=== PATIENT | female | born 1950 | race Caucasian/White ===

== ENCOUNTER → 2017-03-21 | Outpatient (REF) | payer MEDICARE | LOC: M SFHCCLAY 11:54 | PROVIDERS: ATTEND Family Medicine | DX: E78.2 Mixed hyperlipidemia (principal) | CPT/HCPCS: 80061; 84460; G0463 ==

== ENCOUNTER 2017-05-18 09:29 | Day surgery (SDC) | payer MEDICARE ==
[2017-05-18] MEDS: NS 1,000 ML IV (10:28)
[2017-05-18] MEDS ORDERED: PROPOFOL 200 MG/20 ML VIAL As Ordered (10:43)
== END 2017-05-18 11:50 | disposition home or self-care (01) ==
LOC: M OPP 09:29
DX: Z12.11 Encounter for screening for malignant neoplasm of colon (principal); K57.30 Diverticulosis of large intestine without perforation or abscess without bleeding; I10 Essential (primary) hypertension; E78.5 Hyperlipidemia, unspecified; E03.9 Hypothyroidism, unspecified; K21.9 Gastro-esophageal reflux disease without esophagitis; M19.90 Unspecified osteoarthritis, unspecified site; R00.8 Other abnormalities of heart beat; M62.831 Muscle spasm of calf; J01.90 Acute sinusitis, unspecified; N13.70 Vesicoureteral-reflux, unspecified; Z79.2 Long term (current) use of antibiotics; Z79.899 Other long term (current) drug therapy; Z78.0 Asymptomatic menopausal state; Z88.0 Allergy status to penicillin; Z88.2 Allergy status to sulfonamides; Z88.1 Allergy status to other antibiotic agents; Z88.5 Allergy status to narcotic agent
CPT/HCPCS: G0121

== ENCOUNTER → 2017-10-06 | Outpatient (REF) | payer MEDICARE ==
[2017-10-06 12:14] LABS: ALBUMIN 3.9 GM/DL (3.2-5.2); ALBUMIN/GLOBULIN RATIO 1.11 (1.00-1.93); ALKALINE PHOSPHATASE 80 U/L (45-117); ALT/SGPT 47 U/L (12-78); ANION GAP 8 MEQ/L (8-16); AST/SGOT 26 U/L (7-37); BILIRUBIN,TOTAL 0.5 MG/DL (0.2-1.0); BLOOD UREA NITROGEN 13 MG/DL (7-18); CARBON DIOXIDE LEVEL 28 MEQ/L (21-32); CHLORIDE LEVEL 104 MEQ/L (98-107); CHOLESTEROL LEVEL 175 MG/DL (<200); CHOLESTEROL RISK RATIO 3.125 (<5); CREATININE FOR GFR 0.82 MG/DL (0.55-1.30); FREE T4 1.05 NG/DL (0.76-1.46); GLOMERULAR FILTRATION RATE > 60.0 (>45); GLUCOSE, FASTING 123 MG/DL (70-100); HDL CHOLESTEROL 56 MG/DL (>40); LDL CHOLESTEROL 90.6 MG/DL (<100); NON-HDL-C 119 MG/DL; POTASSIUM SERUM 4.1 MEQ/L (3.5-5.1); SODIUM LEVEL 140 MEQ/L (136-145); TOTAL PROTEIN 7.4 GM/DL (6.4-8.2); TRIGLYCERIDES LEVEL 142 MG/DL (<150)
== END ==
LOC: M SFHCCLAY 09:35
DX: E03.9 Hypothyroidism, unspecified (principal); I10 Essential (primary) hypertension; E78.2 Mixed hyperlipidemia
CPT/HCPCS: 84443

== ENCOUNTER → 2018-12-12 | Outpatient (REF) | payer MEDICARE ==
[~2018-12-12] MED LIST: ATEN50TA2 PO; CRAN125T PO; ESTR25TA PO; FURO40TA2 PO; LEVO75TA4 PO; ROSU5TAB5 PO; VITA100067 PO
[2018-12-12 11:57] LABS: HEMATOCRIT 41.4 % (36.0-47.0); MEAN CORPUSCULAR HEMOGLOBIN 30.8 pg (27.0-33.0); MEAN CORPUSCULAR HGB CONC 33.8 g/dl (32.0-36.5); MEAN CORPUSCULAR VOLUME 91.2 fl (80.0-96.0); PLATELET COUNT, AUTOMATED 232 10^3/uL (150-450); RED BLOOD COUNT 4.54 10^6/uL (4.00-5.40)
[2018-12-12 12:20] LABS: HEMOGLOBIN A1c 6.9 %
[2018-12-12 12:27] LABS: ALT/SGPT 37 U/L (12-78); BILIRUBIN,TOTAL 0.4 MG/DL (0.2-1.0); BLOOD UREA NITROGEN 16 MG/DL (7-18); CALCIUM LEVEL 9.3 MG/DL (8.8-10.2); CARBON DIOXIDE LEVEL 27 MEQ/L (21-32); CHLORIDE LEVEL 107 MEQ/L (98-107); CHOLESTEROL LEVEL 169 MG/DL (<200); CHOLESTEROL RISK RATIO 2.864 (<5); CREATININE FOR GFR 0.95 MG/DL (0.55-1.30); FREE T4 1.21 NG/DL (0.76-1.46); GLOMERULAR FILTRATION RATE > 60.0 (>39); GLUCOSE, FASTING 128 MG/DL (70-100); HDL CHOLESTEROL 59 MG/DL (>40); LDL CHOLESTEROL 87 MG/DL (<100); NON-HDL-C 110 MG/DL; POTASSIUM SERUM 4.1 MEQ/L (3.5-5.1); SODIUM LEVEL 140 MEQ/L (136-145); TOTAL PROTEIN 7.3 GM/DL (6.4-8.2); TRIGLYCERIDES LEVEL 116 MG/DL (<150)
== END ==
LOC: M SFHCCLAY 09:02
PROVIDERS: ATTEND Family Medicine
DX: E03.9 Hypothyroidism, unspecified (principal); I10 Essential (primary) hypertension; E78.2 Mixed hyperlipidemia; R73.01 Impaired fasting glucose

== ENCOUNTER → 2019-02-01 | Outpatient (REF) | payer MEDICARE | LOC: M SFHCCLAY 12:23 | PROVIDERS: ATTEND Nurse Practitioner Family | DX: N39.0 Urinary tract infection, site not specified (principal) | CPT/HCPCS: 81002; 87088; 87186; G0463 ==

== ENCOUNTER → 2019-02-15 | Outpatient (REF) | payer MEDICARE | LOC: M SFHCCLAY 10:26 | PROVIDERS: ATTEND Nurse Practitioner Family | DX: N39.0 Urinary tract infection, site not specified (principal) ==

== ENCOUNTER → 2019-11-29 | Outpatient (REF) | payer MEDICARE ==
[2019-11-29 16:26] LABS: CHOLESTEROL LEVEL 202 MG/DL (<200); CHOLESTEROL RISK RATIO 3.607 (<5); HDL CHOLESTEROL 56 MG/DL (>40); LDL CHOLESTEROL 119 MG/DL (<100); NON-HDL-C 146 MG/DL; TOTAL PROTEIN 7.8 GM/DL (6.4-8.2); TRIGLYCERIDES LEVEL 135 MG/DL (<150)
[2019-12-02 12:53] LABS: ALBUMIN 4.77 GM/DL (3.29-5.55); ALBUMIN % 61.2 % (55.8-66.1); ALPHA-1-GLOBULIN % 3.8 % (2.9-4.9); ALPHA-2-GLOBULINS 0.88 GM/DL (0.42-0.99); ALPHA-2-GLOBULINS % 11.3 % (7.1-11.8); BETA-1-GLOBULINS 0.46 GM/DL (0.28-0.60); BETA-1-GLOBULINS % 5.9 % (4.7-7.2); BETA-2-GLOBULINS % 5.1 % (3.2-6.5); GAMMA GLOBULIN % 12.7 % (11.1-18.8); GAMMA GLOBULINS 0.99 GM/DL (0.65-1.58)
== END ==
LOC: M SFHCCLAY 12:44
PROVIDERS: ATTEND Family Medicine
DX: R25.2 Cramp and spasm (principal); E03.9 Hypothyroidism, unspecified; E78.2 Mixed hyperlipidemia; I10 Essential (primary) hypertension; R60.0 Localized edema

== ENCOUNTER → 2020-01-07 | Outpatient (REF) | payer MEDICARE | LOC: M LABDRAWC 13:00 | PROVIDERS: ATTEND Family Medicine | DX: N30.01 Acute cystitis with hematuria (principal) | CPT/HCPCS: 81002; 87088; 87186; G0463 ==

== ENCOUNTER → 2020-02-03 | Outpatient (REF) | payer MEDICARE ==
[2020-02-03 12:56] LABS: CALCIUM LEVEL 9.6 MG/DL (8.8-10.2); CREATININE FOR GFR 0.99 MG/DL (0.55-1.30); FREE T4 1.12 NG/DL (0.76-1.46); GLOMERULAR FILTRATION RATE 58.9 (>39); POTASSIUM SERUM 4.6 MEQ/L (3.5-5.1); THYROID STIMULATING HORMONE 1.6 uIU/ML (0.358-3.740)
== END ==
LOC: M SFHCCLAY 10:59
PROVIDERS: ATTEND Family Medicine
DX: E11.9 Type 2 diabetes mellitus without complications (principal); E03.4 Atrophy of thyroid (acquired)

== ENCOUNTER → 2020-02-06 | Outpatient (REF) | payer MEDICARE | LOC: M SFHCCLAY 11:29 | PROVIDERS: ATTEND Physician Assistant | DX: R30.0 Dysuria (principal); N39.0 Urinary tract infection, site not specified ==

== ENCOUNTER → 2020-09-07 | Outpatient (REF) | payer MEDICARE ==
[2020-09-07 12:38] LABS: CALCIUM LEVEL 9.9 MG/DL (8.8-10.2); CREATININE FOR GFR 1.05 MG/DL (0.55-1.30); GLOMERULAR FILTRATION RATE 54.8 (>39); MAGNESIUM LEVEL 2.2 MG/DL (1.8-2.4); POTASSIUM SERUM 4.2 MEQ/L (3.5-5.1); THYROID STIMULATING HORMONE 0.236 uIU/ML (0.358-3.740)
[2020-09-07 13:12] LABS: HEMOGLOBIN A1c 6.4 %
== END ==
LOC: M SFHCCLAY 08:52
PROVIDERS: ATTEND Family Medicine
DX: R25.2 Cramp and spasm (principal); I10 Essential (primary) hypertension; E11.9 Type 2 diabetes mellitus without complications; E03.9 Hypothyroidism, unspecified; E78.2 Mixed hyperlipidemia

== ENCOUNTER → 2021-02-04 | Outpatient (REF) | payer MEDICARE | LOC: M SFHCCLAY 12:40 | PROVIDERS: ATTEND Family Medicine | DX: N12 Tubulo-interstitial nephritis, not specified as acute or chronic (principal) | CPT/HCPCS: 81002; 87088; 87186; G0463 ==

== ENCOUNTER → 2021-07-15 | Outpatient (REF) | payer MEDICARE | LOC: M SFHCCLAY 10:28 | PROVIDERS: ATTEND Family Medicine | DX: N30.01 Acute cystitis with hematuria (principal) ==

== ENCOUNTER → 2021-08-30 | Outpatient (REF) | payer MEDICARE ==
[2021-08-30 16:22] LABS: BASO % 0.5 % (0.0-1.0); EOS # 0.2 10^3/uL (0.0-0.5); HEMATOCRIT 39.6 % (36.0-47.0); HEMOGLOBIN 13.6 g/dl (12.0-15.5); LYMPH # 2.6 10^3/uL (1.5-5.0); LYMPH % 31.3 % (24.0-44.0); MEAN CORPUSCULAR HEMOGLOBIN 30.5 pg (27.0-33.0); MEAN CORPUSCULAR HGB CONC 34.3 g/dl (32.0-36.5); MEAN CORPUSCULAR VOLUME 88.8 fl (80.0-96.0); MONO # 0.6 10^3/uL (0.0-0.8); MONO % 7.6 % (2.0-8.0); NEUTROPHILS # 4.8 10^3/uL (1.5-8.5); NEUTROPHILS % 57.8 % (36.0-66.0); PLATELET COUNT, AUTOMATED 267 10^3/uL (150-450); RED BLOOD COUNT 4.46 10^6/uL (4.00-5.40); WHITE BLOOD COUNT 8.4 10^3/uL (4.0-10.0)
[2021-08-30 16:23] LABS: AMORPHOUS SEDIMENT SMALL (NEGATIVE); APPEARANCE, URINE HAZY (CLEAR); BACTERIA, URINE AUTO 1+ (NEGATIVE); BILIRUBIN, URINE AUTO NEGATIVE (NEGATIVE); BLOOD, URINE BLOOD NEGATIVE (NEGATIVE); COLOR, URINE YELLOW (YELLOW); GLUCOSE, URINE (UA) AUTO NEGATIVE (NEGATIVE); KETONE, URINE AUTO NEGATIVE (NEGATIVE); LEUKOCYTE ESTERASE, URINE AUTO NEGATIVE (NEGATIVE); NITRITE, URINE AUTO NEGATIVE (NEGATIVE); PROTEIN, URINE AUTO NEGATIVE (NEGATIVE); RBC, URINE AUTO 1 /HPF (0-3); SPECIFIC GRAVITY URINE AUTO 1.013 (1.002-1.035); SQUAMOUS EPITHELIAL CELL UR AU 12 /HPF (0-6); UROBILINOGEN, URINE AUTO 0.2 mg/dL (0.0-2.0); WBC, URINE AUTO 2 /HPF (0-3)
[2021-08-30 16:57] LABS: BILIRUBIN,TOTAL 0.5 MG/DL (0.2-1.0); CALCIUM LEVEL 9.7 MG/DL (8.8-10.2); CHOLESTEROL RISK RATIO 2.693 (<5); CREATININE FOR GFR 1.01 MG/DL (0.55-1.30); FREE T4 1.2 NG/DL (0.76-1.46); GLOMERULAR FILTRATION RATE 57.2 (>39); THYROID STIMULATING HORMONE 1.25 uIU/ML (0.358-3.740); TOTAL PROTEIN 7.4 GM/DL (6.4-8.2); URIC ACID 5.5 MG/DL (2.6-6.0)
[2021-08-30 17:01] LABS: HEMOGLOBIN A1c 7.1 %
[2021-08-30 17:14] LABS: ERYTHROCYTE SEDIMENTATION RATE 22 mm/hr (0-30)
[2021-09-01 23:08] LABS: ANA (HEP2) Negative (.); CYCLIC CITRULLINATED PEPTIDE 22 units (0-19)
== END ==
LOC: M SFHCCLAY 09:46
PROVIDERS: ATTEND Family Medicine
DX: Z00.00 Encounter for general adult medical examination without abnormal findings (principal); E03.9 Hypothyroidism, unspecified; E78.2 Mixed hyperlipidemia; I10 Essential (primary) hypertension; E11.9 Type 2 diabetes mellitus without complications; K21.9 Gastro-esophageal reflux disease without esophagitis; M79.10 Myalgia, unspecified site

== ENCOUNTER → 2022-02-10 | Outpatient (REF) | payer MEDICARE ==
[2022-02-10 19:15] LABS: HEMOGLOBIN A1c 6.7 %
== END ==
LOC: M SFHCCLAY 11:36
PROVIDERS: ATTEND Family Medicine
DX: E11.9 Type 2 diabetes mellitus without complications (principal)

== ENCOUNTER → 2022-09-01 | Outpatient (CLI) | payer MEDICARE | LOC: M WHC 12:04 | PROVIDERS: ATTEND Family Medicine | DX: Z12.31 Encounter for screening mammogram for malignant neoplasm of breast (principal) ==

== ENCOUNTER → 2023-03-23 | Outpatient (CLI) | payer MEDICARE | LOC: M RAD 10:01 | PROVIDERS: ATTEND Family Medicine | DX: M54.2 Cervicalgia (principal); E03.9 Hypothyroidism, unspecified ==

== ENCOUNTER → 2023-09-01 | Outpatient (REF) | payer MEDICARE ==
[2023-09-01 19:02] LABS: HEMOGLOBIN A1c 7.8 % (4.0-6.0)
== END ==
LOC: M SFHCCLAY 11:34
PROVIDERS: ATTEND Physician Assistant
DX: E11.9 Type 2 diabetes mellitus without complications (principal)

== ENCOUNTER → 2023-12-04 | Outpatient (REF) | payer MEDICARE ==
[~2023-12-04] MED LIST changes: +ROSU5TAB40 PO; -ROSU5TAB5 PO
[2023-12-04 17:45] LABS: BILIRUBIN,TOTAL 0.5 MG/DL (0.3-1.2); CALCIUM LEVEL 9.4 MG/DL (8.3-10.6); CHOLESTEROL RISK RATIO 3.48 (<5); CREATININE FOR GFR 1.14 MG/DL (0.55-1.30); GLOMERULAR FILTRATION RATE 49.5 (>39); HDL CHOLESTEROL 54.3 MG/DL (>40); LDL CHOLESTEROL 91.7 MG/DL (<100); NON-HDL-C 134.7 MG/DL; POTASSIUM SERUM 3.9 MMOL/L (3.5-5.1); TOTAL PROTEIN 7.1 G/DL (5.7-8.2)
[2023-12-04 17:47] LABS: FREE T4 1.13 NG/DL (0.89-1.76); THYROID STIMULATING HORMONE 1.761 uIU/ML (0.55-4.78)
[2023-12-04 18:52] LABS: CREATININE, URINE 64.4 MG/DL; MALB URINE SIEMENS < 3.0 MG/L; MAU/CREAT RATIO 4.6 MCG/MG (0.0-30.0)
== END ==
LOC: M SFHCCLAY 09:36
PROVIDERS: ATTEND Physician Assistant
DX: E03.9 Hypothyroidism, unspecified (principal); E11.9 Type 2 diabetes mellitus without complications; E78.2 Mixed hyperlipidemia

== ENCOUNTER → 2024-02-22 | Outpatient (CLI) | payer MEDICARE | LOC: M RAD 10:09 | PROVIDERS: ATTEND Internal Medicine Nephrology | DX: N18.31 Chronic kidney disease, stage 3a (principal); N30.00 Acute cystitis without hematuria; I12.9 Hypertensive chronic kidney disease with stage 1 through stage 4 chronic kidney disease, or unspecified chronic kidney disease; N28.1 Cyst of kidney, acquired ==

== ENCOUNTER → 2024-03-04 | Outpatient (REF) | payer MEDICARE ==
[2024-03-04 17:36] LABS: HEMOGLOBIN A1c 7.4 % (4.0-6.0)
== END ==
LOC: M SFHCCLAY 09:58
PROVIDERS: ATTEND Physician Assistant
DX: E11.9 Type 2 diabetes mellitus without complications (principal)

== ENCOUNTER → 2024-03-13 | Outpatient (REF) | payer MEDICARE | LOC: M SFHCCLAY 11:36 | PROVIDERS: ATTEND Physician Assistant | DX: N30.01 Acute cystitis with hematuria (principal) ==

== ENCOUNTER → 2024-03-28 | Outpatient (REF) | payer MEDICARE ==
[~2024-03-28] MED LIST changes: -ROSU5TAB40 PO; +ROSU5TAB49 PO
[2024-03-28 17:35] LABS: APPEARANCE, URINE CLEAR (CLEAR); BACTERIA, URINE AUTO NEGATIVE (NEGATIVE); BILIRUBIN, URINE AUTO NEGATIVE (NEGATIVE); BLOOD, URINE BLOOD NEGATIVE (NEGATIVE); COLOR, URINE STRAW (YELLOW); GLUCOSE, URINE (UA) AUTO 3+ mg/dL (NEGATIVE); KETONE, URINE AUTO NEGATIVE (NEGATIVE); LEUKOCYTE ESTERASE, URINE AUTO NEGATIVE (NEGATIVE); NITRITE, URINE AUTO NEGATIVE (NEGATIVE); PROTEIN, URINE AUTO NEGATIVE (NEGATIVE); RBC, URINE AUTO 0 /HPF (0-3); SQUAMOUS EPITHELIAL CELL UR AU 1 /HPF (0-6); UROBILINOGEN, URINE AUTO 0.2 mg/dL (0.0-2.0); WBC, URINE AUTO 1 /HPF (0-3)
== END ==
LOC: M SFHCCLAY 10:02
PROVIDERS: ATTEND Physician Assistant
DX: N30.01 Acute cystitis with hematuria (principal)

== ENCOUNTER → 2024-04-04 | Outpatient (CLI) | payer MEDICARE | LOC: M RAD 14:08 | PROVIDERS: ATTEND Physician Assistant | DX: R59.9 Enlarged lymph nodes, unspecified (principal) ==

== ENCOUNTER → 2024-05-31 | Outpatient (REF) | payer MEDICARE ==
[2024-05-31 10:57] LABS: APPEARANCE, URINE TURBID (CLEAR); BACTERIA, URINE AUTO 3+ (NEGATIVE); BILIRUBIN, URINE AUTO NEGATIVE (NEGATIVE); BLOOD, URINE BLOOD 1+ (NEGATIVE); COLOR, URINE YELLOW (YELLOW); GLUCOSE, URINE (UA) AUTO 3+ mg/dL (NEGATIVE); KETONE, URINE AUTO NEGATIVE (NEGATIVE); LEUKOCYTE ESTERASE, URINE AUTO 3+ (NEGATIVE); MUCUS, URINE LARGE (NEGATIVE); NITRITE, URINE AUTO NEGATIVE (NEGATIVE); PROTEIN, URINE AUTO 1+ mg/dL (NEGATIVE); RBC, URINE AUTO 12 /HPF (0-3); SPECIFIC GRAVITY URINE AUTO 1.011 (1.002-1.035); SQUAMOUS EPITHELIAL CELL UR AU 7 /HPF (0-6); UROBILINOGEN, URINE AUTO 0.2 mg/dL (0.0-2.0); WBC, URINE AUTO TNTC /HPF (0-3); YEAST LIKE CELL URINE AUTO SMALL
[2024-05-31 11:27] LABS: HEMOGLOBIN A1c 6.7 % (4.0-6.0)
== END ==
LOC: M SFHCCLAY 09:35
PROVIDERS: ATTEND Physician Assistant
DX: E11.9 Type 2 diabetes mellitus without complications (principal); Z87.440 Personal history of urinary (tract) infections; Z79.899 Other long term (current) drug therapy

== ENCOUNTER → 2024-06-04 | Outpatient (REF) | payer MEDICARE ==
[2024-06-04 17:15] LABS: APPEARANCE, URINE CLEAR (CLEAR); BACTERIA, URINE AUTO NEGATIVE (NEGATIVE); BILIRUBIN, URINE AUTO NEGATIVE (NEGATIVE); BLOOD, URINE BLOOD NEGATIVE (NEGATIVE); COLOR, URINE STRAW (YELLOW); GLUCOSE, URINE (UA) AUTO 3+ mg/dL (NEGATIVE); KETONE, URINE AUTO NEGATIVE (NEGATIVE); LEUKOCYTE ESTERASE, URINE AUTO 1+ (NEGATIVE); MUCUS, URINE SMALL (NEGATIVE); NITRITE, URINE AUTO NEGATIVE (NEGATIVE); PROTEIN, URINE AUTO NEGATIVE (NEGATIVE); RBC, URINE AUTO 3 /HPF (0-3); SPECIFIC GRAVITY URINE AUTO 1.005 (1.002-1.035); SQUAMOUS EPITHELIAL CELL UR AU 1 /HPF (0-6); UROBILINOGEN, URINE AUTO 0.2 mg/dL (0.0-2.0); WBC, URINE AUTO 13 /HPF (0-3)
== END ==
LOC: M SFHCCLAY 11:21
PROVIDERS: ATTEND Physician Assistant
DX: N39.0 Urinary tract infection, site not specified (principal)

== ENCOUNTER → 2024-07-09 | Outpatient (REF) | payer MEDICARE ==
[2024-07-09 17:05] LABS: APPEARANCE, URINE HAZY (CLEAR); BACTERIA, URINE AUTO 1+ (NEGATIVE); BILIRUBIN, URINE AUTO NEGATIVE (NEGATIVE); BLOOD, URINE BLOOD 1+ (NEGATIVE); COLOR, URINE STRAW (YELLOW); GLUCOSE, URINE (UA) AUTO NEGATIVE (NEGATIVE); KETONE, URINE AUTO NEGATIVE (NEGATIVE); LEUKOCYTE ESTERASE, URINE AUTO 3+ (NEGATIVE); NITRITE, URINE AUTO NEGATIVE (NEGATIVE); PROTEIN, URINE AUTO NEGATIVE (NEGATIVE); RBC, URINE AUTO 7 /HPF (0-3); SPECIFIC GRAVITY URINE AUTO 1.003 (1.002-1.035); SQUAMOUS EPITHELIAL CELL UR AU 1 /HPF (0-6); UROBILINOGEN, URINE AUTO 0.2 mg/dL (0.0-2.0); WBC, URINE AUTO TNTC /HPF (0-3)
[2024-07-09 17:52] LABS: HEMOGLOBIN A1c 6.4 % (4.0-6.0)
== END ==
LOC: M SFHCCLAY 09:24
PROVIDERS: ATTEND Physician Assistant
DX: E11.9 Type 2 diabetes mellitus without complications (principal); R35.0 Frequency of micturition

== ENCOUNTER → 2024-09-25 | Outpatient (REF) | payer MEDICARE ==
[2024-09-25 13:09] LABS: BILIRUBIN,TOTAL 0.5 MG/DL (0.3-1.2); CALCIUM LEVEL 9.7 MG/DL (8.3-10.6); CHOLESTEROL RISK RATIO 2.92 (<5); CREATININE FOR GFR 1.02 MG/DL (0.55-1.30); HDL CHOLESTEROL 58.4 MG/DL (>40); LDL CHOLESTEROL 88.8 MG/DL (<100); NON-HDL-C 112.6 MG/DL; POTASSIUM SERUM 4.8 MMOL/L (3.5-5.1)
[2024-09-25 13:16] LABS: FREE T4 1.41 NG/DL (0.89-1.76); HEMOGLOBIN A1c 5.9 % (4.0-6.0); THYROID STIMULATING HORMONE 0.131 uIU/ML (0.55-4.78)
== END ==
LOC: M SFHCCLAY 08:15
PROVIDERS: ATTEND Physician Assistant
DX: E11.9 Type 2 diabetes mellitus without complications (principal); E03.9 Hypothyroidism, unspecified; N18.31 Chronic kidney disease, stage 3a; E78.2 Mixed hyperlipidemia; I12.9 Hypertensive chronic kidney disease with stage 1 through stage 4 chronic kidney disease, or unspecified chronic kidney disease; K21.9 Gastro-esophageal reflux disease without esophagitis; R59.9 Enlarged lymph nodes, unspecified; G43.109 Migraine with aura, not intractable, without status migrainosus; Q62.2 Congenital megaureter; Z90.710 Acquired absence of both cervix and uterus; L90.0 Lichen sclerosus et atrophicus; L21.9 Seborrheic dermatitis, unspecified; L29.9 Pruritus, unspecified; M85.80 Other specified disorders of bone density and structure, unspecified site

== ENCOUNTER → 2024-12-16 | Outpatient (REF) | payer MEDICARE ==
[2024-12-16 18:54] LABS: CREATININE, URINE 16.0 MG/DL; MALB URINE SIEMENS < 3.0 MG/L
[2024-12-16 18:55] LABS: ALT/SGPT 25.0 U/L (7.0-40); AST/SGOT 30.0 U/L (<34); CALCIUM LEVEL 10.2 MG/DL (8.3-10.6); CARBON DIOXIDE LEVEL 29.0 MMOL/L (20-31); CHLORIDE LEVEL 103.0 MMOL/L (98-107); CREATININE FOR GFR 1.18 MG/DL (0.55-1.30); GLOMERULAR FILTRATION RATE 47.9 (>39); POTASSIUM SERUM 5.1 MMOL/L (3.5-5.1); SODIUM LEVEL 142.0 MMOL/L (136-145)
[2024-12-16 18:57] LABS: FREE T4 1.64 NG/DL (0.89-1.76)
[2024-12-16 18:59] LABS: ESTIMATED AVERAGE GLUCOSE 117.0 MG/DL (60-110)
== END ==
LOC: M SFHCCLAY 09:48
PROVIDERS: ATTEND Physician Assistant
DX: E11.22 Type 2 diabetes mellitus with diabetic chronic kidney disease (principal); E03.9 Hypothyroidism, unspecified; N18.31 Chronic kidney disease, stage 3a; E78.2 Mixed hyperlipidemia; I12.9 Hypertensive chronic kidney disease with stage 1 through stage 4 chronic kidney disease, or unspecified chronic kidney disease; K21.9 Gastro-esophageal reflux disease without esophagitis; G43.109 Migraine with aura, not intractable, without status migrainosus; Q62.2 Congenital megaureter; Z90.710 Acquired absence of both cervix and uterus; L90.0 Lichen sclerosus et atrophicus; L21.9 Seborrheic dermatitis, unspecified; L29.9 Pruritus, unspecified; M85.80 Other specified disorders of bone density and structure, unspecified site; Z12.31 Encounter for screening mammogram for malignant neoplasm of breast

== ENCOUNTER → 2025-04-18 | Outpatient (REF) | payer MEDICARE ==
[2025-04-18 17:48] LABS: ALT/SGPT 25.0 U/L (7.0-40); AST/SGOT 22.0 U/L (<34); CALCIUM LEVEL 9.1 MG/DL (8.3-10.6); CARBON DIOXIDE LEVEL 29.0 MMOL/L (20-31); CHLORIDE LEVEL 105.0 MMOL/L (98-107); CHOLESTEROL LEVEL 179.0 MG/DL (<200); CHOLESTEROL RISK RATIO 2.65 (<5); CREATININE FOR GFR 1.15 MG/DL (0.55-1.30); GLOMERULAR FILTRATION RATE 49.1 (>39); LDL CHOLESTEROL 92.1 MG/DL (<100); NON-HDL-C 111.7 MG/DL; POTASSIUM SERUM 4.1 MMOL/L (3.5-5.1); SODIUM LEVEL 143.0 MMOL/L (136-145); TRIGLYCERIDES LEVEL 98.0 MG/DL (<150)
[2025-04-18 17:52] LABS: FREE T4 1.24 NG/DL (0.89-1.76)
[2025-04-18 18:36] LABS: ESTIMATED AVERAGE GLUCOSE 120.0 MG/DL (60-110)
== END ==
LOC: M SFHCCLAY 09:31
PROVIDERS: ATTEND Physician Assistant
DX: Z00.00 Encounter for general adult medical examination without abnormal findings (principal); E11.9 Type 2 diabetes mellitus without complications; E03.9 Hypothyroidism, unspecified; I12.9 Hypertensive chronic kidney disease with stage 1 through stage 4 chronic kidney disease, or unspecified chronic kidney disease; E78.2 Mixed hyperlipidemia; K21.9 Gastro-esophageal reflux disease without esophagitis; G43.109 Migraine with aura, not intractable, without status migrainosus; Q62.2 Congenital megaureter; Z90.710 Acquired absence of both cervix and uterus; L90.0 Lichen sclerosus et atrophicus; L21.9 Seborrheic dermatitis, unspecified; L29.9 Pruritus, unspecified; M85.80 Other specified disorders of bone density and structure, unspecified site; Z12.31 Encounter for screening mammogram for malignant neoplasm of breast; N95.8 Other specified menopausal and perimenopausal disorders